=== PATIENT | male | born 1970 | race Two or more races ===

== ENCOUNTER 2019-09-25 06:58 | Emergency (ER) | payer OTHER ==
[~2019-09-25] VITALS: Ht 182.9 cm; Wt 122.5 kg
--- NOTE | 2019-09-25 07:10 | NUR ---
Dr. Aceves at bedside for MSE
[2019-09-25] MEDS ORDERED: IBUPROFEN 800 MG TABLET ONE (07:29)
[2019-09-25] MEDS ORDERED: IBUPROFEN 800 MG TABLET PO ONE (07:30)
--- NOTE | 2019-09-25 08:15 | NUR ---
Patient taken to CT scan in stable condition
--- NOTE | 2019-09-25 08:28 | NUR ---
Patient back from CT scan in stable condition
--- NOTE | 2019-09-25 09:08 | NUR ---
Patient discharged to home in stable condition. Written and verbal after care instructions given. Patient verbalizes understanding of instructions. Stressed follow up or return to ER for worsening s/s. Patient ambulating with steady gait. NAD noted
[2019-09-25 09:13] VITALS: BP 141/71
== END 2019-09-25 09:07 | disposition home or self-care (01) ==
LOC: ER 07:11
DX: S83.91XA Sprain of unspecified site of right knee, initial encounter (principal); X50.1XXA Overexertion from prolonged static or awkward postures, initial encounter; Y93.01 Activity, walking, marching and hiking; Y92.89 Other specified places as the place of occurrence of the external cause; E66.9 Obesity, unspecified; M17.11 Unilateral primary osteoarthritis, right knee; F31.9 Bipolar disorder, unspecified; Z76.0 Encounter for issue of repeat prescription; M25.461 Effusion, right knee
CPT/HCPCS: 73700; A4663